=== PATIENT | male | born 1950 | race Caucasian/White ===

== ENCOUNTER → 2020-10-08 | Outpatient (CLI) | payer MEDICARE, BC ==
[~2020-10-08] MED LIST: ASCO100018 PO; ASPI81TA45 PO; ATOR10TA9 PO; BISO5TAB8 PO; BUPR75TA6 PO; CALC1CAP8 PO; CLOP75TA52 PO; KRIL1CAP7 PO; LISI-167 PO; MULT-658 PO; Marijuana INH; OMEP40CA42 PO; POTA99TA2 PO; magnesium PO
[2020-10-08 13:31] LABS: BASOPHILS % (AUTO) 1 % (0-1); EOSINOPHILS % (AUTO) 3 % (1-7); LYMPHOCYTES % (AUTO) 33 % (22-44); MEAN CORPUSCULAR HEMOGLOBIN 34.5 pg (27.5-34.5); MEAN CORPUSCULAR HGB CONC 35.9 g/dL (33.2-36.2); MEAN PLATELET VOLUME 9.4 fL (7.4-10.4); MONOCYTES % (AUTO) 11 % (2-9); NEUTROPHILS % (AUTO) 53 % (42-75); PLATELET COUNT 242 x10^3/uL (130-400); RED BLOOD COUNT 4.53 x10^6/uL (4.38-5.82); RED CELL DISTRIBUTION WIDTH 12.7 % (9.4-14.8)
[2020-10-08 13:32] LABS: ALBUMIN 4.2 g/dL (3.4-5.0); ANION GAP 7 mmol/L (5-15); CHLORIDE 101 mmol/L (98-107); MD NO
[2020-10-08 13:36] LABS: ALANINE AMINOTRANSFERASE 41 U/L (12-78); ALKALINE PHOSPHATASE 81 U/L (45-117); BILIRUBIN,TOTAL 0.6 mg/dL (0.2-1.0); CREATININE 1.44 mg/dL (0.7-1.3); TOTAL PROTEIN 8.1 g/dL (6.4-8.2)
== END | disposition home or self-care (01) ==
LOC: STAR 12:17
PROVIDERS: ATTEND Surgery
DX: Z01.812 Encounter for preprocedural laboratory examination (principal)
CPT/HCPCS: 36415; 80053; 85025

== ENCOUNTER 2020-10-12 13:18 | Day surgery (SDC) | payer MEDICARE, BC ==
[~2020-10-12] VITALS: Ht 182.9 cm; Wt 89.5 kg
[~2020-10-12 13:18] MED LIST changes: +VISIPAQUE 270 MG/ML, 50ML BOTTLE ONE
[2020-10-12 13:40] VITALS: BP 154/84
[2020-10-12] MEDS ORDERED: LIDOCAINE 1%, 10ML ONE (15:21)
[2020-10-12] MEDS ORDERED: MIDAZOLAM 1 MG/ML, 5ML ONE (15:25)
[2020-10-12] MEDS ORDERED: FENTANYL PF 100 MCG/2ML ONE (15:25)
[2020-10-12] MEDS ORDERED: FLUMAZENIL 0.1 MG/1 ML, 5ML ONE (15:25)
[2020-10-12] MEDS ORDERED: HEPARIN 1,000 UNITS/ML, 10ML ONE (15:26)
[2020-10-12] MEDS ORDERED: NALOXONE 1 MG/ML, 2ML ONE (15:26)
[2020-10-12] MEDS ORDERED: PROTAMINE SULFATE 10 MG/ML, 25ML ONE (15:26)
[2020-10-12] MEDS ORDERED: SODIUM CHLORIDE FLUSH 10ML SYR IVF SCH (21:00)
== END 2020-10-12 19:05 | disposition home or self-care (01) ==
LOC: OUT 13:18
PROVIDERS: ATTEND Surgery
DX: I70.213 Atherosclerosis of native arteries of extremities with intermittent claudication, bilateral legs (principal); I10 Essential (primary) hypertension; I25.10 Atherosclerotic heart disease of native coronary artery without angina pectoris; E78.5 Hyperlipidemia, unspecified; M19.90 Unspecified osteoarthritis, unspecified site; I25.5 Ischemic cardiomyopathy; F41.8 Other specified anxiety disorders; Z95.818 Presence of other cardiac implants and grafts; Z98.890 Other specified postprocedural states; Z79.82 Long term (current) use of aspirin; Z79.899 Other long term (current) drug therapy; Z87.891 Personal history of nicotine dependence; Z82.49 Family history of ischemic heart disease and other diseases of the circulatory system
CPT/HCPCS: 37221; 75625; 75716; 99156; 99157; C1725; C1751; C1760; C1769; C1876; C1894; J1644; J2250; J3010; Q9966; 75710; J2720; J2310